=== PATIENT | female | born 1995 | race Caucasian/White ===

== ENCOUNTER 2017-03-03 09:53 | Emergency (ER) | payer OTHER ==
[~2017-03-03] VITALS: Ht 149.9 cm; Wt 80.8 kg
[2017-03-03 10:04] VITALS: BP 117/71
== END 2017-03-03 11:05 | disposition left against medical advice (07) ==
LOC: ED 09:53
DX: O26.891 Other specified pregnancy related conditions, first trimester (principal); R10.31 Right lower quadrant pain; Z3A.25 25 weeks gestation of pregnancy